=== PATIENT | female | born 1970 | race African-American/Black ===

== ENCOUNTER 2022-01-31 09:30 | Outpatient (RCR) | payer OTHER, MEDICAID ==
[~2022-01-31 09:30] MED LIST: CELEXA40 MG PO; COZAAR 25MG25 MG/TAB PO; DESYREL 100MG100 MG PO; KLONOPIN 1MG1 MG PO; LORTAB 5/500 501 TAB PO; MEVACOR10 MG PO; NORCO 325 MG-51 TAB PO; VALTREX 50500 MG/TAB PO; WELLBUTRIN SR150 M1 PO; XANAX 0.5MG0.5 MG PO
== END 2022-02-08 | disposition still patient (30) ==
LOC: WSPT
DX: M47.816 Spondylosis without myelopathy or radiculopathy, lumbar region (principal)

== ENCOUNTER 2022-02-27 09:45 | Outpatient (RCR) | payer OTHER, MEDICAID | END 2022-03-10 | disposition home or self-care (01) | LOC: WSC | DX: M47.816 Spondylosis without myelopathy or radiculopathy, lumbar region (principal) ==

== ENCOUNTER 2023-09-03 19:56 | Emergency (ER) | payer MEDICARE, MEDICAID ==
[~2023-09-03] VITALS: Ht 154.9 cm; Wt 106.8 kg
[2023-09-03 20:05] VITALS: TEMP 97.5
[2023-09-03] MEDS ORDERED: VOLTAREN 75 DR75 MG PO (20:44)
[2023-09-03 21:05] VITALS: BP 155/89; PULSE 71
== END 2023-09-03 21:05 | disposition home or self-care (01) ==
LOC: COL.ER 19:56
DX: S46.911A Strain of unspecified muscle, fascia and tendon at shoulder and upper arm level, right arm, initial encounter (principal); M54.50 Low back pain, unspecified; V43.52XA Car driver injured in collision with other type car in traffic accident, initial encounter; Y92.410 Unspecified street and highway as the place of occurrence of the external cause
CPT/HCPCS: J1885